=== PATIENT | male | born 1990 | race Two or more races ===

== ENCOUNTER 2025-07-03 12:08 | Emergency (ER) | payer SELFPAY ==
[~2025-07-03] VITALS: Ht 185.4 cm; Wt 77.0 kg
[2025-07-03 12:14] VITALS: O2SAT 99
[2025-07-03] MEDS ORDERED: CEPH500T MT (13:26)
[2025-07-03] MEDS ORDERED: BO1 TP (13:26)
[2025-07-03] MEDS: IBUPROFEN 600MG TABLET PO ONE (13:42)
[2025-07-03 13:43] VITALS: BP 129/80; PULSE 90; RESP 16; TEMP 37.1; O2SAT 99
== END 2025-07-03 13:45 | disposition home or self-care (01) ==
LOC: ER 12:08
DX: S90.452A Superficial foreign body, left great toe, initial encounter (principal); W25.XXXA Contact with sharp glass, initial encounter; Y93.89 Activity, other specified; Y92.89 Other specified places as the place of occurrence of the external cause; Y99.8 Other external cause status
CPT/HCPCS: 99283